=== PATIENT | female | born 1950 | race Caucasian/White ===

== ENCOUNTER 2024-04-06 10:40 | Emergency (ER) | payer MEDICARE ==
[~2024-04-06] VITALS: Ht 162.6 cm; Wt 77.1 kg
[2024-04-06 11:38] LABS: BASOPHILS # (AUTO) 0.05 K/uL (0.00-0.20); BASOPHILS % (AUTO) 0.8 % (0.0-5.0); EOSINOPHILS # (AUTO) 0.28 K/uL (0.00-0.70); EOSINOPHILS % (AUTO) 4.2 % (0.0-8.0); HEMATOCRIT 35.7 % (36-48); IMMATURE GRANULOCYTE ABSOLUTE 0.02 K/uL (0-1); LYMPHOCYTES % (AUTO) 15.4 % (21.0-51.0); MEAN CORPUSCULAR HEMOGLOBIN 32.9 pg (27.0-33.0); MEAN CORPUSCULAR HGB CONC 31.4 g/dL (32.0-36.0); MONOCYTES # (AUTO) 0.5 K/uL (0.1-1.0); MONOCYTES % (AUTO) 7.7 % (3.0-13.0); NEUTROPHILS # (AUTO) 4.8 K/uL (1.8-7.7); NEUTROPHILS % (AUTO) 71.6 % (40.0-77.0); PLATELET COUNT (AUTO) 229 K/uL (130-400); RED CELL DISTRIBUTION WIDTH 13.3 % (11.0-15.5); WHITE BLOOD COUNT (AUTO) 6.6 K/uL (4.8-10.8)
[2024-04-06 11:52] LABS: CREATININE 0.7 mg/dL (0.5-1.0)
[2024-04-06 11:57] LABS: ALBUMIN 3.2 g/dL (3.5-5.0); BILIRUBIN,TOTAL 0.7 mg/dL (0.2-1.0); MAGNESIUM 1.7 mg/dL (1.80-2.40); TOTAL PROTEIN, SERUM 6.2 g/dL (6.0-8.3)
[2024-04-06 12:16] LABS: B-TYPE NATRIURETIC PEPTIDE 17 pg/mL (0-100)
[2024-04-06 12:38] VITALS: BP 121/55; PULSE 60; RESP 14; O2SAT 100
[2024-04-06] MEDS ORDERED: MECL-302 PO (13:30)
[2024-04-06] MEDS ORDERED: MAGN300C PO (13:30)
[2024-04-06] MEDS: mecliZINE HCL 25 MG TABLET PO ONE (13:42)
[2024-04-06] MEDS: Solu-medROL 125MG VIAL IVP ONE (13:42)
== END 2024-04-06 14:03 | disposition home or self-care (01) ==
LOC: EDH 10:40
DX: H81.10 Benign paroxysmal vertigo, unspecified ear (principal); H83.09 Labyrinthitis, unspecified ear; E83.42 Hypomagnesemia; I48.91 Unspecified atrial fibrillation; I10 Essential (primary) hypertension
CPT/HCPCS: 99285; 96374; 70450; 83735; 84484; 80053; 83880; 85025; 36415; 93005; J2919

== ENCOUNTER 2024-07-12 08:17 | Day surgery (SDC) | payer MEDICARE ==
[2024-07-06 09:13] LABS: BASOPHILS # (AUTO) 0.04 K/uL (0.00-0.20); BASOPHILS % (AUTO) 0.7 % (0.0-5.0); EOSINOPHILS # (AUTO) 0.19 K/uL (0.00-0.70); EOSINOPHILS % (AUTO) 3.4 % (0.0-8.0); HEMATOCRIT 36.5 % (36-48); IMMATURE GRANULOCYTE ABSOLUTE 0.04 K/uL (0-1); LYMPHOCYTES # (AUTO) 1.1 K/uL (1.0-4.8); LYMPHOCYTES % (AUTO) 20.3 % (21.0-51.0); MEAN CORPUSCULAR HEMOGLOBIN 32.7 pg (27.0-33.0); MEAN CORPUSCULAR HGB CONC 30.4 g/dL (32.0-36.0); MEAN CORPUSCULAR VOLUME 107.7 fL (79-99); MONOCYTES # (AUTO) 0.4 K/uL (0.1-1.0); MONOCYTES % (AUTO) 6.5 % (3.0-13.0); NEUTROPHILS # (AUTO) 3.8 K/uL (1.8-7.7); NEUTROPHILS % (AUTO) 68.4 % (40.0-77.0); PLATELET COUNT (AUTO) 251 K/uL (130-400); RED BLOOD CELL COUNT(AUTO) 3.39 MIL/uL (4.00-5.50); RED CELL DISTRIBUTION WIDTH 14.3 % (11.0-15.5); WHITE BLOOD COUNT (AUTO) 5.5 K/uL (4.8-10.8)
[2024-07-06 09:21] LABS: CREATININE 0.8 mg/dL (0.5-1.0); POTASSIUM 3.4 mmol/L (3.5-5.1)
[2024-07-06 09:27] VITALS: BP 141/63; PULSE 91; RESP 19; TEMP 97.1
[2024-07-06 09:29] LABS: PROTHROMBIN TIME 10.8 SEC (9.6-11.6)
--- NOTE | 2024-07-11 12:25 | NUR ---
REPORT REPORTED POTASSIUM LEVEL TO DR MART. OK TO PROCEED
[~2024-07-12] VITALS: Ht 162.6 cm; Wt 80.2 kg
[2024-07-12] VITALS (13 sets, daily range): BP systolic 106–147; BP diastolic 60–71; PULSE 62–115; RESP 12–16; TEMP 97–97.3
[~2024-07-12 08:17] MED LIST: DAPS100T PO; HYDR28OI10 TP; LIDO5JEL8 TP; TRIA454O TP; VERA120T92 PO; [UNRECOGNIZED DRUG - OTHER] PO
[2024-07-12] MEDS ORDERED: 0.9%NACL 1000ML 1,000 ML IV ONE (08:34)
[2024-07-12] MEDS ORDERED: LIDOCAINE HCL 1% MDV 50ML VIAL ONE (11:17)
[2024-07-12] MEDS ORDERED: HEParin 10,000 UNIT/10ML (1,000 UNIT/ML) VIAL ONE (11:17)
[2024-07-12] MEDS ORDERED: HEParin-NS 1,000 UNIT/500 ML 1,000 ML IV ONE (11:17)
[2024-07-12] MEDS ORDERED: ISOPROTERENOL HCL 0.2 MG/ML AMP/VIAL/BAG ONE (11:38)
[2024-07-12] MEDS ORDERED: MEPERIDINE-PF 25 MG/ML SYG ONE ×4 (11:38→14:02)
[2024-07-12] MEDS ORDERED: MIDAZOLAM HCL 1 MG/ML 2ML VIAL ONE ×4 (11:39→14:03)
[2024-07-12] MEDS ORDERED: metoPROLOL tartRATE 1 MG/ML 5ML VIAL IV ONE (13:52)
[2024-07-12] MEDS ORDERED: AMIOdarone 150MG VIAL ONE (14:11)
[2024-07-12] MEDS ORDERED: DRON400T7 PO (14:20)
[2024-07-12] MEDS ORDERED: acetaMINOPHEN WITH coDEINE 1 TAB TAB PO PRN ×2 (14:30)
[2024-07-12] MEDS ORDERED: acetaMINOPHEN 325 MG TAB PO PRN (14:30)
--- NOTE | 2024-07-12 17:05 | NUR ---
Full and complete discharge instructions given to Patient and Family both verbally and in writing. All questions answered. Patient denies c/o pain or discomfort. Voiced understanding to precautions post Maintenance Painter procedure. Bilateral Groin sites soft without bruising, bleeding or hematoma. Pedal pulses intact to ble's. PIV removed with catheter tip intact. Dr. Dueñas to speak at length with Patient and Son. W/C to POV to Home.
== END 2024-07-12 17:30 | disposition home or self-care (01) ==
LOC: DAH 08:17
PROVIDERS: ATTEND Internal Medicine Cardiovascular Disease
DX: I47.10 Supraventricular tachycardia, unspecified (principal); Z98.41 Cataract extraction status, right eye; Z79.01 Long term (current) use of anticoagulants; Z79.899 Other long term (current) drug therapy
CPT/HCPCS: 80048; 85025; 85610; 85730; 36415; 93620; 93623; 93613; 85347 ×2; C1894 ×5; C1732 ×2; C1730 ×3; A4649 ×2; J7030; J3490 ×2; J1644 ×2; J2250 ×4; J2175 ×4; J0282; A4215; A4222; A4221; A4663 ×2; A4216; A4606; C1760 ×5; A4223 ×2; 99156; 99157

== ENCOUNTER → 2024-09-27 | Outpatient (CLI) | payer MEDICARE ==
[2024-09-27] MEDS: REGADENOSON 0.4 MG/5 ML PF SYG IVP ONE (14:47)
--- NOTE | 2024-09-28 08:30 | HMCSR ---
APPROVED REPORT Height: 5 ft 4in Weight: 173 lbs TEST INDICATIONS i47.1 SUPRAVENTRICULAR TACHYCARDIA, The imaging protocol used to acquire images was Rest Tc-99m/stress Tc-99m 1 day Consent: The procedure was explained and understood by the patient. Informerd consent was witnessed Sara MEJIA RN First, low dose rest was performed then high dose stress. RESTING DATA: The resting ekg shows: NSR Rest SPECT myocardial perfusion imaging was performed in supine position 87 minutes following the int ravenous injection of 11.2 mCi of Tc-99 Sestamibi. Time of rest injection: 09:07: Date: 09/27/2024 Time of rest imagin:34: Date: 09/27/2024 PHARMACOLOGIC STRESS: Pharmacologic stress test was performed by injecting regadenoson 0.4 mg IV push followed by the intra venous injection of 32.8 mCi of Tc-99 Sestamibi. Time of stress injection: 11:00: Date: 09/27/2024 Time of stress imagin:40: Date: 09/27/2024 Heart Rate at time of stress injection: 61 bpm. Gated Stress SPECT was performed 100 minutes after stress injection. The images were gated to evaluate regional wall motion and calculate left ventricular ejection fracti on. STRESS DETAILS Reason for Termination: Infusion complete Stress Symptoms: No chest pain or symptoms Max HR Achieved: 88 bpm % of APMHR Achieved: 61 Max Blood Pressure: 127/50 mmHg Stress ECG: NSR Study quality was good. Lung uptake was Normal. Artifact: No artifact LEFT VENTRICLE Size: The left ventricular size is small. Systolic Function:The left ventricular systolic function is normal. Wall Motion: Cannot assess regional wall motion abnormalities. The left ventricular ejection fraction was calculated to be 77%.TID = . LV PERFUSION There is decreased radiotracer uptake noted at the apex present on both the rest and stress images ap proved feet in the vertical long axis and horizontal long axis view consistent with a fixed defect There is decreased radiotracer uptake noted of mild degree in the lateral wall present on both the re st and stress images of small size Conclusion Probably normal myocardial perfusion scan with soft tissue and GI artifact noted possibly responsible for apical and lateral defect Preserved ejection fraction at 77% Can not completely exclude prior infarct No evidence of reversible ischemia Clinical correlation recommended
== END | disposition home or self-care (01) ==
LOC: SHCH 08:38
PROVIDERS: ATTEND Internal Medicine Cardiovascular Disease
DX: I47.10 Supraventricular tachycardia, unspecified (principal); I47.19 Other supraventricular tachycardia; I48.91 Unspecified atrial fibrillation; R06.02 Shortness of breath; R53.83 Other fatigue
CPT/HCPCS: 78452; 93017; J2785; A9500 ×2